=== PATIENT | male | born 1980 | race Two or more races ===

== ENCOUNTER 2020-01-16 20:49 | Emergency (ER) | payer OTHER ==
[~2020-01-16] VITALS: Ht 165.1 cm; Wt 72.6 kg
--- NOTE | 2020-01-16 21:00 | NUR ---
PT [id number], PER EMS PT AGITATED AND AGRESSIVE, JUMPING ON CARS AND BANGING HIS HEAD. PT GIVEN 5MG VERSED EN ROUTE. PT CHANGED INTO GOWN, BELONGINGS PLACED TO LOCKER, SITTER AT BEDSIDE FOR SAFETY.
[2020-01-16] MEDS ORDERED: OLANZAPINE 10 MG VIAL IM ONE ×2 (21:30→22:29)
[2020-01-16] MEDS ORDERED: LORAZEPAM INJ 2 MG/ML VIAL IM ONE (21:30)
[2020-01-16 21:56] LABS: BASOPHILS # (AUTO) 0.1 /CMM (0.0-0.2); BASOPHILS % (AUTO) 0.5 % (0.0-2.0); EOSINOPHILS % (AUTO) 2.9 % (0.0-6.0); HEMATOCRIT 41 % (39-51); HEMOGLOBIN 13.8 g/dL (13.5-17.5); LYMPHOCYTES # (AUTO) 2.1 /CMM (0.8-4.8); LYMPHOCYTES % (AUTO) 20.1 % (20.0-44.0); MEAN CORPUSCULAR HGB CONC 34 g/dl (31.0-36.0); MEAN CORPUSCULAR VOLUME 97 fL (80-96); MONOCYTES # (AUTO) 1.1 /CMM (0.1-1.30); MONOCYTES % (AUTO) 11.1 % (2.0-12.0); NEUTROPHILS # (AUTO) 6.7 /CMM (1.8-8.9); NEUTROPHILS % (AUTO) 65.4 % (43.0-81.0); PLATELET COUNT (AUTO) 292 /CMM (150-450); RED BLOOD CELL COUNT(AUTO) 4.17 MIL/uL (4.5-6.0); WHITE BLOOD COUNT (AUTO) 10.3 K/uL (4.3-11.0)
[2020-01-16 22:05] LABS: CALCIUM, SERUM 9.3 mg/dL (8.5-10.1); CARBON DIOXIDE 27 mmol/L (21-32); CHLORIDE 108 mmol/L (98-107); CREATININE 0.8 mg/dL (0.6-1.3); GLUCOSE 97 mg/dL (74-106); POTASSIUM 4.1 mmol/L (3.5-5.1); SODIUM SERUM 144 mmol/L (136-145); UREA NITROGEN, BLOOD 26 mg/dL (7-18)
[2020-01-16 22:20] LABS: ALANINE AMINOTRANSFERASE 40 U/L (12-78); ALBUMIN 3.8 g/dL (3.4-5.0); ALCOHOL, BLOOD < 3 mg/dL (0-0); ALKALINE PHOSPHATASE 152 U/L (46-116); ASPARTATE AMINOTRANSFERASE 23 U/L (15-37); BILIRUBIN,DIRECT 0.2 mg/dL (0.0-0.2); BILIRUBIN,TOTAL 0.7 mg/dL (0.2-1.0); SALICYLATE 3.6 mg/dL (2.8-20.0)
[2020-01-16 22:24] LABS: ACETAMINOPHEN 0 ug/ml (10-30)
[2020-01-16] MEDS ORDERED: LORAZEPAM INJ 2 MG/ML VIAL ONE (22:31)
--- NOTE | 2020-01-17 03:40 | NUR ---
PT RESTING COMFORTABLY IN BED.VSS. NO ACUTE DISTRESS NOTED. WILLC CONTINUE TO MONITOR
--- NOTE | 2020-01-17 04:58 | NUR ---
PT RESTING COMFORTABLY IN BED. EASILY AROUSABLE. VITAL SIGNS STABLE. SITTER AT BEDSIDE, WILL CONTINUE TO MONITOR.
--- NOTE | 2020-01-17 05:30 | NUR ---
PT AWAKE, AAOX4. DENIES SI/HI AT THIS TIME. PER DR. ROSENTHAL PT MEDICALLY CLEARED FOR DISCHARGE AT THIS TIME. AMBULATORY WITH STEADY GAIT. PT REFUSED HOMELESS RESOURCES. CLOTHING ADEQUATE FOR DISCHARGE. PT BECAME VERBALLY AGGRESSIVE TOWARDS STAFF. HOSPITAL SECURITY AT BEDSIDE FOR DISCHARGE.
[2020-01-17 05:46] VITALS: BP 133/71
== END 2020-01-17 05:30 | disposition home or self-care (01) ==
LOC: ER 20:50 → EDBD 20:50 → ER 01-17 05:30
DX: S00.81XA Abrasion of other part of head, initial encounter (principal); R45.1 Restlessness and agitation; R41.82 Altered mental status, unspecified; Z59.0 Homelessness; X58.XXXA Exposure to other specified factors, initial encounter; Y93.89 Activity, other specified; Y92.89 Other specified places as the place of occurrence of the external cause; Y99.8 Other external cause status
CPT/HCPCS: 36415; 70450; 72125; 80048; 80076; 80307; 80329; 85025; 96372 ×2; 99285; G0480; J2060; J3490

== ENCOUNTER 2020-01-18 12:04 | Emergency (ER) | payer OTHER ==
[~2020-01-18] VITALS: Ht 165.1 cm; Wt 59.9 kg
--- NOTE | 2020-01-18 12:10 | NUR ---
PT BIBRA FROM A PARKING LOT TO ER BED 15 ACCOMPANIED BY PD. PER REPORT PT WAS ACTING BIZZARE, NAKED AND "SMEARING FECES ON CARS." PT WAS AGITATED, COMBATIVE KITCHENHAND. AWAITNG MD CREWS.
[2020-01-18] MEDS ORDERED: OLANZAPINE 10 MG VIAL IM ONE ×4 (12:13→18:00)
--- NOTE | 2020-01-18 12:13 | NUR ---
DR IRENE AT BEDSIDE FOR EVAL.
[2020-01-18] MEDS ORDERED: LORAZEPAM INJ 2 MG/ML VIAL ONE (12:14)
--- NOTE | 2020-01-18 12:25 | NUR ---
PT IS AGITATED. COMBATIVE, MEDICATED ORDERED. SEE EMAR.
[2020-01-18] MEDS ORDERED: LORAZEPAM INJ 2 MG/ML VIAL IM ONE (12:30)
[2020-01-18 13:04] LABS: BASOPHILS # (AUTO) 0.1 /CMM (0.0-0.2); EOSINOPHILS % (AUTO) 3.1 % (0.0-6.0); HEMATOCRIT 36 % (39-51); HEMOGLOBIN 12.3 g/dL (13.5-17.5); LYMPHOCYTES # (AUTO) 1.6 /CMM (0.8-4.8); LYMPHOCYTES % (AUTO) 23.8 % (20.0-44.0); MEAN CORPUSCULAR HGB CONC 34 g/dl (31.0-36.0); MEAN CORPUSCULAR VOLUME 97 fL (80-96); MONOCYTES # (AUTO) 0.8 /CMM (0.1-1.30); MONOCYTES % (AUTO) 12.1 % (2.0-12.0); NEUTROPHILS # (AUTO) 4.1 /CMM (1.8-8.9); PLATELET COUNT (AUTO) 249 /CMM (150-450); RED BLOOD CELL COUNT(AUTO) 3.75 MIL/uL (4.5-6.0); WHITE BLOOD COUNT (AUTO) 6.8 K/uL (4.3-11.0)
[2020-01-18 13:16] LABS: BILIRUBIN,URINE SMALL (NEGATIVE); BLOOD, URINE Negative Ery/uL (NEGATIVE); COLOR,URINE Yellow (YELLOW); KETONES,URINE Negative (NEGATIVE); LEUKOCYTE ESTERASE ,URINE Negative (NEGATIVE); NITRITE, URINE Negative (NEGATIVE); PH,URINE 5.5 (5.0-8.0); PROTEIN,URINE 100 mg/dl (NEGATIVE); UGLUCOSE Negative (NEGATIVE); UROBILINOGEN,URINE 0.2 EU/dL (0.2)
[2020-01-18 13:18] LABS: ACETAMINOPHEN < 2 ug/ml (10-30); ALANINE AMINOTRANSFERASE 37 U/L (12-78); ALBUMIN 3.6 g/dL (3.4-5.0); ALCOHOL, BLOOD < 3 mg/dL (0-0); ALKALINE PHOSPHATASE 143 U/L (46-116); ASPARTATE AMINOTRANSFERASE 29 U/L (15-37); BILIRUBIN,DIRECT 0.2 mg/dL (0.0-0.2); BILIRUBIN,TOTAL 0.7 mg/dL (0.2-1.0); CALCIUM, SERUM 8.9 mg/dL (8.5-10.1); CARBON DIOXIDE 26 mmol/L (21-32); CHLORIDE 108 mmol/L (98-107); CREATININE 0.7 mg/dL (0.6-1.3); GLUCOSE 103 mg/dL (74-106); POTASSIUM 3.7 mmol/L (3.5-5.1); SODIUM SERUM 143 mmol/L (136-145); TOTAL PROTEIN, SERUM 6.4 g/dL (6.4-8.2); UREA NITROGEN, BLOOD 18 mg/dL (7-18)
[2020-01-18 13:21] LABS: APPEARANCE,URINE HAZY (CLEAR)
[2020-01-18 13:26] LABS: BACTERIA,URINE Few /HPF (None Seen); MUCUS,URINE Many /LPF (None Seen); RBC,URINE 0-2 /HPF (0-2); SQUAMOUS EPITHELIAL CELL,UR Few /HPF (None Seen); WBC,URINE 0-2 /HPF (0-3)
--- NOTE | 2020-01-18 17:30 | NUR ---
CALLED [employer] REPRESENTATIVE [employer] FOR EVAL. WILL BE HERE WITHIN AN HOUR.
[2020-01-18] MEDS ORDERED: risperiDONE 1 MG TABLET ONE (22:41)
[2020-01-18] MEDS ORDERED: risperiDONE 1 MG TABLET PO ONE (23:00)
--- NOTE | 2020-01-19 01:42 | NUR ---
PT RESTING COMFORTABLY IN BED. VSS. NO ACUTE DISTRESS NOTED. SITTER AT BEDSIDE FOR SAFETY. WILL CONTINUE TO MONITOR
[2020-01-19] MEDS ORDERED: HALOPERIDOL LACTATE INJ 5 MG/ML VIAL ONE (01:46)
[2020-01-19] MEDS ORDERED: LORAZEPAM INJ 2 MG/ML VIAL ONE (01:46)
--- NOTE | 2020-01-19 01:53 | NUR ---
Patient yelling and becoming aggressive. Dr Joel notified and patient medicated as ordered.
[2020-01-19] MEDS ORDERED: LORAZEPAM INJ 2 MG/ML VIAL IM ONE (02:00)
[2020-01-19] MEDS ORDERED: HALOPERIDOL LACTATE INJ 5 MG/ML VIAL IM ONE (02:00)
--- NOTE | 2020-01-19 02:18 | NUR ---
PER ROCIO, PT'S CLINICALS WERE FAXED TO [facility] SINCE THERE WERE NO BEDS AVAILABLE IN [place].
--- NOTE | 2020-01-19 06:26 | NUR ---
TRANSFER INFO: PT ACCEPTED TO [facility] ACCEPTING MD: DR. MARR AND DR. VALDEZ NUMBER FOR REPORT: [phone] [phone]
--- NOTE | 2020-01-19 06:37 | NUR ---
CALLED [facility] FOR TRANSPORTATION. ETA [phone]. TRIP #[id number]
--- NOTE | 2020-01-19 07:10 | NUR ---
ASSESSED PT ON BED ASLEEP, EASILY AROUSABLE, AAOX4, NOT IN RESPIRATORY DISTRESS, V/S STABLE, KEPT RESTED AND COMFORTABLE, WILL CONTINUE TO MONITOR.
--- NOTE | 2020-01-19 07:20 | NUR ---
PT STATED HE IS NOT SUICIDAL AND WANTS TO GO HOME. SITTER AT BEDSIDE. AWARE.
[2020-01-19 09:10] VITALS: BP 117/61
--- NOTE | 2020-01-19 09:30 | NUR ---
JAY CALLED [phone] [employer] OPERATOR 412. INFO BROADCASTED TO AREA UNITS TO [facility].
--- NOTE | 2020-01-19 09:30 | NUR ---
PT WALKOUT OF THE FACILITY SITTER TRIED TO CONVINCED PT TO STAY AND FAILED. AWARE.
--- NOTE | 2020-01-19 09:35 | NUR ---
Patient eloped from facility. ER MD notified.
== END 2020-01-19 13:20 | disposition left against medical advice (07) ==
LOC: ER 12:12
DX: F28 Other psychotic disorder not due to a substance or known physiological condition (principal)
CPT/HCPCS: 36415; 80048; 80076; 80305; 80307; 80329; 81001; 85025; 96372 ×3; 99291; G0480; J1630; J2060 ×2; J3490 ×2; 81000-TC